=== PATIENT | female | born 1975 | race Caucasian/White ===

== ENCOUNTER 2017-01-15 20:16 | Emergency (ER) | payer SELFPAY ==
[~2017-01-15] VITALS: Ht 160 cm; Wt 106.8 kg
[~2017-01-15 20:16] MED LIST: FLEXERIL 1010 MG/TAB PO; NORCO 325 MG-51 TA1 PO; PERCOCET 325 MG1 TA2 PO; XANAX0.5 M1 PO; ZOFRAN ODT8 M1 PO
[2017-01-15] MEDS ORDERED: AMOXIL500 M1 PO (20:52)
[2017-01-15 20:58] VITALS: BP 134/82
== END 2017-01-15 20:58 | disposition home or self-care (01) ==
LOC: ED 20:16
DX: K08.89 Other specified disorders of teeth and supporting structures (principal); K03.81 Cracked tooth
CPT/HCPCS: J1885

== ENCOUNTER 2018-12-09 07:10 | Emergency (ER) | payer SELFPAY ==
[~2018-12-09] VITALS: Ht 160 cm; Wt 91.4 kg
[~2018-12-09 07:10] MED LIST changes: +AMOXIL500 M1 PO
[2018-12-09 08:18] VITALS: BP 100/57
== END 2018-12-09 08:16 | disposition home or self-care (01) ==
LOC: ED 07:10
DX: S39.012A Strain of muscle, fascia and tendon of lower back, initial encounter (principal); F17.210 Nicotine dependence, cigarettes, uncomplicated; W01.10XA Fall on same level from slipping, tripping and stumbling with subsequent striking against unspecified object, initial encounter; Y92.002 Bathroom of unspecified non-institutional (private) residence as the place of occurrence of the external cause
CPT/HCPCS: J1885